=== PATIENT | male | born 1970 | race Two or more races ===

== ENCOUNTER → 2024-01-01 | Emergency (ER) | payer MEDICAID, OTHER ==
[~2024-01-01] VITALS: Ht 172.7 cm; Wt 113.9 kg
[2024-01-01 23:33] VITALS: BP 147/103; PULSE 77; RESP 20; O2SAT 97
== END | disposition left against medical advice (07) ==
LOC: ER 22:33
DX: S20.461A Insect bite (nonvenomous) of right back wall of thorax, initial encounter (principal); Z53.21 Procedure and treatment not carried out due to patient leaving prior to being seen by health care provider; W57.XXXA Bitten or stung by nonvenomous insect and other nonvenomous arthropods, initial encounter; Y93.89 Activity, other specified; Y92.89 Other specified places as the place of occurrence of the external cause; Y99.8 Other external cause status